=== PATIENT | female | born 1985 | race Caucasian/White ===

== ENCOUNTER → 2018-01-11 | Outpatient (CLI) | payer BC ==
[~2018-01-11] MED LIST: CIPRO250 M1 PO; NAPROSYN500 MG PO; NOHOMEMEDICATIONS
== END ==
LOC: M.ULTRA 01-08 11:30
DX: N88.8 Other specified noninflammatory disorders of cervix uteri (principal); N63.10 Unspecified lump in the right breast, unspecified quadrant

== ENCOUNTER 2019-02-06 18:05 | Emergency (ER) | payer BC ==
[~2019-02-06] VITALS: Ht 162.6 cm; Wt 102.1 kg
[2019-02-06 20:08] VITALS: BP 144/90
== END 2019-02-06 20:12 | disposition home or self-care (01) ==
LOC: M.ERS 18:05
DX: S62.646A Nondisplaced fracture of proximal phalanx of right little finger, initial encounter for closed fracture (principal); W22.8XXA Striking against or struck by other objects, initial encounter; Y93.89 Activity, other specified; Y92.89 Other specified places as the place of occurrence of the external cause; Y99.8 Other external cause status